=== PATIENT | male | born 1970 | race Two or more races ===

== ENCOUNTER 2022-05-04 08:51 | Emergency (ER) | payer MEDICAID, OTHER ==
[~2022-05-04] VITALS: Ht 167.6 cm; Wt 80.0 kg
[2022-05-04 08:58] VITALS: BP 0/0
[2022-05-04] MEDS ORDERED: EPINEPHrine HCL 1 MG/10 ML SYRG ONE ×3 (09:12→09:33)
[2022-05-04] MEDS ORDERED: ESMOLOL HCL (10MG/ML) 10 ML VIAL IV ONE (09:30)
[2022-05-04] MEDS ORDERED: ESMOLOL HCL-NS 10MG/ML 250 ML IV SCH (09:45)
== END 2022-05-04 18:49 ==
LOC: EDBD 08:51 → ER 08:51
DX: I46.9 Cardiac arrest, cause unspecified (principal); F15.10 Other stimulant abuse, uncomplicated; F10.10 Alcohol abuse, uncomplicated; R41.82 Altered mental status, unspecified
CPT/HCPCS: 31500; 36556; 36600; 82805; 92950; 99291; J0171; J3490